=== PATIENT | female | born 1965 | race Caucasian/White ===

== ENCOUNTER 2025-04-09 00:50 | Emergency (ER) | payer MEDICAID, SELFPAY ==
[2025-04-09 00:50] VITALS: BMI 31.6
[2025-04-09 01:09] VITALS: BP 156/91; PULSE 77; RESP 22; TEMP 36.6; O2SAT 97
--- NOTE | 2025-04-09 01:32 | EKG_ITS ---
[facility] Test Date: 2025-04-09 Pat Name: KOFI ZAVALETA Department: Room: - Gender: Female Self Pay Collector: : 1965 Requested By: Kirk Caceres Order Number: [id number] Reading MD: Kirk Caceres Measurements Intervals [place] Rate: 83 P: 15 SC: 163 QRS: -56 QRSD: 106 T: 60 QT: 377 QTc: 444 Interpretive Statements SINUS RHYTHM LEFT ANTERIOR FASCICULAR BLOCK [QRS AXIS <= -45, QR IN I, RS IN II] VOLTAGE CRITERIA FOR LVH [MEETS CRITERIA IN ONE OF: R(aVL), S(V1), R(V5), R(V5/V6)+S(V1)] POSSIBLE ANTERIOR MYOCARDIAL INFARCTION , OF INDETERMINATE AGE [30 ms Q WAVE IN V3/V4, OR R < 0.2 mV IN V4] Compared to ECG 03/24/2023 18:37:25 No significant changes /store/S0/[id number]/ecg/[id number].pdf
--- NOTE | 2025-04-09 01:32 | XR_ITS ---
Examination: PA chest single view Technique whereby PA chest single view Date and time: April 09, 2025 0143 hours Comparison March 24, 2023 MEDICATIONS: Lower chest pain nausea vomiting today. FINDINGS: No significant cardiac enlargement Lungs are clear. The osseous structures are demineralized IMPRESSION: No active disease
--- NOTE | 2025-04-09 01:32 | PD.EDRME ---
Rapid Medical Screening Exam RME Arrival date/time: 04/09/25 00:50 59F with history of HTN, hypothyroidism, and seizures presents to ED with 1 day of LUQ/lower chest pain and some N/V. Patient recently had an EGD and colonoscopy that were unremarkable. A part of her pancreas was biopsied, but as far as patient knows, all pathology was benign. Patient states this doesn't feel like her gastritis. Chief Complaint: Abdominal Pain Time Seen by Provider: 04/09/25 01:31 Vital signs: Vital Signs Temperature 98 F 04/09/25 01:09 Pulse Rate 77 04/09/25 01:09 Respiratory Rate 22 H 04/09/25 01:09 Blood Pressure 156/91 H 04/09/25 01:09 Pulse Oximetry (%) 97 04/09/25 01:09 Oxygen Delivery Method Room Air 04/09/25 01:09
[2025-04-09] MEDS: Aspirin 325 MG TABLET PO (01:42)
--- NOTE | 2025-04-09 02:17 | PD.EDABDPN ---
ED Abdominal Pain RME/HPI General Chief Complaint: Abdominal Pain Stated complaint: LEFT UPPER ABDOMINAL PAIN Time seen by provider: 04/09/25 01:31 Arrival date/time: 04/09/25 00:50 RME / HPI RME / HPI narrative: 04/09/25 00:50 59F with history of HTN, hypothyroidism, and seizures presents to ED with 1 day of LUQ/lower chest pain and some N/V. Patient recently had an EGD and colonoscopy that were unremarkable. A part of her pancreas was biopsied, but as far as patient knows, all pathology was benign. Patient states this doesn't feel like her gastritis. --------- Dr. Howard?s Main ED Evaluation: 59yo female with a history of HTN, hypothyroidism, seizures presents to the ED for a chief complaint of epigastric pain x tonight. No radiation or migration. Patient describes her pain as sharp in nature. Patient reports associated nausea and lightheadedness. Patient denies any vomiting, diarrhea, shortness of breath, cough, UTI symptoms, hematuria, melena, hematochezia, rash or any other associated symptoms. Denies any recent travel. Denies any history of similar symptoms. Denies any tobacco, alcohol or illicit drug use. PSH includes cholecystectomy, partial hysterectomy, and hernia repair. Related Data Home Medications ?Medication ?Instructions ?Recorded ?Confirmed atenolol 25 mg tablet 25 mg PO QDAY 09/27/21 09/27/21 thyroid (pork) 60 mg tablet 60 mg PO QDAY 09/27/21 09/27/21 ([place] Thyroid) Previous Rx's ?Medication ?Instructions ?Recorded gabapentin 300 mg capsule 300 mg PO TID PRN severe pain 09/27/21 (scale score 7-10) #30 caps ciprofloxacin HCl 500 mg tablet 500 mg PO BID #10 tabs 03/24/23 Allergies Allergy/AdvReac Type Severity Reaction Status Date / Time hydrocodone Allergy Mild FEELS Verified 03/24/23 16:19 LIKE SPIDERS CRAWLING ON ME Review of Systems Review of Systems Systems Reviewed: All systems reviewed, normal except as documented Past Medical History Past Medical History CARDIAC: Positive Hypertension; Negative Congestive Heart Failure RESPIRATORY: Negative Chronic Obstructive Pulmonary Disease (COPD) GENITOURINARY: Negative Renal Disease ENDOCRINE: Positive Hypothyroidism; Negative Diabetes Mellitus Type 1 or Diabetes Mellitus Type 2 Social History SMOKING STATUS: Never smoker ED Exam Narrative Physical exam: GEN. APPEARANCE: The patient is alert awake oriented X-3 in no distress, lying down comfortably, does not look ill/toxic. Patient has good eye contact. Patient is cooperative. VITALS: All vitals were reviewed and the pulse ox is 97% on room air which is normal according to my interpretation. HEENT: Normocephalic, atraumatic. Pupils are equal and reactive. Oral mucosa is moist. Patent Nares NECK: Supple, nontender, no thyromegaly, no meningismus, no JVD CHEST: Symmetrical, atraumatic, and with equal expansion, mild tenderness to the left rib, no deformity and no crepitus CARDIOVASCULAR: Heart regular rhythm no murmur or gallop rub or extra beats. LUNGS: Clear to auscultation bilaterally with symmetrical chest rise. No laboring tachypnea or wheezing. No intercostal subcostal retraction. No rales and no rhonchi. ABDOMEN: Soft, flat, nontender to palpation, no guarding or rebound tenderness. There are no abnormal masses palpated. Active and normal bowel sounds. EXTREMITIES: Nontender. No edema. No cyanosis. Patient is able to move all 4 extremities well, with full ROM and good CSM. SKIN: Warm and dry, no jaundice or rashes noted. NEURO: Patient is MURRAY x 4, Cranial nerves II through XII grossly intact. There is no focal neurologic deficits noted. GCS is 15, PNS and COMPENSATION AND BENEFITS ADVISOR appear grossly intact. PSYCHIATRIC: Patient is in normal mood and affect. Course Quality Measures none Orders Category Date Time Status EKG (ED ONLY) *Do not use* NOW Care 04/09/25 01:32 Completed EKG (ED Only) Stat Exams 04/09/25 01:32 Draft XR chest 1V portable Stat Exams 04/09/25 01:32 Taken B-Type Natriuretic Peptide Stat Lab 04/09/25 02:12 Completed CBC Stat Lab 04/09/25 02:12 Completed Comprehensive Metabolic Panel Stat Lab 04/09/25 02:12 Completed Lipase Stat Lab 04/09/25 02:12 Completed Partial Thromboplastin Time Stat Lab 04/09/25 02:12 Completed Prothrombin Time with INR Stat Lab 04/09/25 02:12 Completed Troponin I Stat Lab 04/09/25 02:12 Completed Troponin I Stat Lab 04/09/25 04:48 Completed Aspirin Med 04/09/25 01:32 Discontinued 325 mg PO X1 ONE Vital Signs Vital signs: Vital Signs Temperature 98 F 04/09/25 01:09 Pulse Rate 77 04/09/25 01:09 Respiratory Rate 22 H 04/09/25 01:09 Blood Pressure 156/91 H 04/09/25 01:09 Pulse Oximetry (%) 97 04/09/25 01:09 Oxygen Delivery Method Room Air 04/09/25 01:09 Abdominal Pain MDM MDM Narrative MDM Narrative:: Scribe Attestation: 04/09/25 Tish Ngo am scribing for and in the presence of Dr. Howard. Patient data External records reviewed:: [facility] previous records (Per chart review, patient was seen here on 03/24/23 for gastroenteritis.) Clinical information provided by:: patient Social determinants that could affect healthcare access:: none Patient has the following chronic illnesses:: HTN, seizures, hypothyroidism How is presenting disease/condition affected by chronic disease/condition?: uneffected by Evaluation data The following diagnostics were reviewed and interpreted by me:: lab results, radiology exam(s) and EKG tracing(s) Lab and/or radiology exams considered but not ordered:: none Interpretation Summary: CBC normal, PT/INR/PTT normal, CMP normal, Troponin normal, BNP normal, Lipase normal. Repeat Troponin is normal. CXR shows no pleural effusions, no infiltrates, no consolidations, according to my interpretation. EKG done at 0135, NSR, rate of 83, normal intervals, nonspecific ST-T changes, no acute ischemia, according to my interpretation. On reevaluation patient hemodynamically stable not distressed will discharge home close return precautions follow-up with your primary care doctor. Patient would benefit for evaluation by client technical professional, would benefit from a stress test and cardiac ultrasound Medications / Prescriptions Medications or Prescriptions considered but not ordered:: none Medication administrations:: Medication Administration History Discontinued Medications Aspirin (Aspirin 325 Mg Tablet) 325 mg PO X1 ONE Stop: 04/09/25 01:33 Last Admin: 04/09/25 01:42 Dose: 325 mg Documented By: MIC see above Consultations Consultation(s) initiated? (list below): No Diagnosis Differential diagnosis abdominal pain: other (ACS, metabolic disturbance, dehydration, STEMI, NSTEMI) Most likely diagnosis given after review of the tests above:: see clinical impression below Admission Indicated Admission indicated?: not indicated Admission Request Was there a request for admission?: No Disposition Plan Disposition Plan: Discharge Discharge Attestation Discharge Attestation: The patient and all family members were given an opportunity to ask questions and understood the discharge instructions. Discharge instructions specifically effects, indications for sooner follow up or return to the emergency department, and the expected course of current diagnosis. Patient condition: Stable Discharge Plan Plan Patient Disposition: HOME (Self Care) Prescriptions/Referrals Prescriptions/Med Rec: No Action gabapentin 300 mg capsule 300 mg PO TID PRN (Reason: severe pain (scale score 7-10)) Qty: 30 0RF Rx Instructions: Start 1 capsule at bedtime, as needed for chest wall pain, may gradually increase to twice daily to 3 times daily as needed for pain atenolol 25 mg tablet 25 mg PO QDAY thyroid (pork) [[place] Thyroid] 60 mg tablet 60 mg PO QDAY ciprofloxacin HCl 500 mg tablet 500 mg PO BID Qty: 10 0RF Referrals: Sheron Akbar PA-C [Primary Care Provider] - In 1 week Problem List Clinical Impression: Chest discomfort Patient/Caregiver Discharge Instructions Discharge Activity: activity as tolerated Education Materials: ED Chest Pain, Noncardiac Additional Instructions: Your chest x-ray labs and EKG today were reassuring. Your cardiac enzyme was not elevated on 2 different assessments less likely that you are having acute cardiac event. It is important that you follow-up with your primary care doctor and request evaluation by client technical professional. You may benefit from a stress test and a cardiac echo. Print Language: Occitan Stand Alone Forms: Lucie Award Info., Patient Portal Info Letter
[2025-04-09 02:37] LABS: Basophils % (Auto) 0 % (0-2.5); Eosinophils # (Auto) 0.1 Thou/mm3 (0.0-0.5); Eosinophils % (Auto) 2 % (0-10); Hematocrit 38.4 % (36.0-46.0); Hemoglobin 13.2 g/dL (12.0-16.0); Immature Granulocytes % (Auto) 0 % (0-0); Immature Granulocytes Auto 0.02 Thou/mm3 (0.00-0.00); Lymphocytes # (Auto) 3.1 Thou/mm3 (1.0-4.8); Lymphocytes % (Auto) 41 % (10-50); Mean Corpuscular HGB Conc 34.4 g/dl (31.0-37.0); Mean Corpuscular Hemoglobin 29.9 pg (25.0-35.0); Mean Corpuscular Volume 87 fL (80-100); Monocytes # (Auto) 0.7 Thou/mm3 (0.0-0.8); Monocytes % (Auto) 9 % (0-12); Neutrophils # (Auto) 3.5 Thou/mm3 (1.8-7.7); Neutrophils % (Auto) 47 % (37-80); Nucleated Red Blood Cell % 0 /100 WBC (0); Platelet Count 233 Thou/mm3 (140-440); RDW Standard Deviation 42.2 fL (36.4-46.3); Red Blood Count 4.42 Miln/mm3 (4.00-5.20); White Blood Count 7.5 Thou/mm3 (3.6-11.0)
[2025-04-09 02:39] LABS: INR 0.9 (0.9-1.3); Partial Thromboplastin Time 24.8 Seconds (22.0-36.0); Prothrombin Time 10.4 Seconds (9.0-12.2)
[2025-04-09 02:43] LABS: B-Type Natriuretic Peptide < 20 pg/mL (0-100)
[2025-04-09 02:46] LABS: Alanine Aminotransferase 29 U/L (10-49); Albumin, Serum 4.5 gm/dL (3.4-4.8); Albumin/Globulin Ratio 2.1 (1.2-2.2); Alkaline Phosphatase 101 U/L (46-116); Anion Gap 11 (7-16); Aspartate Amino Transferase 26 U/L (0-34); BUN/Creatinine Ratio 14 Ratio (12-20); Bilirubin,Total 0.3 mg/dL (0.3-1.2); Blood Urea Nitrogen 17 mg/dL (9-23); Calcium 9.5 mg/dL (8.3-10.6); Calcium (Corrected) 9.5 mg/dL (8.5-10.1); Carbon Dioxide 24.7 mMol/L (20.0-31.0); Chloride 109 mMol/L (98-107); Creatinine (Component) 1.2 mg/dL (0.6-1.3); Globulin 2.1 gm/dL (2.3-3.5); Glucose 115 mg/dL (74-106); Lipase 43 U/L (12-53); Osmolality,Calculated 291 (275-295); Potassium 3.9 mMol/L (3.4-5.1); Sodium 145 mMol/L (136-145); Total Protein 6.6 gm/dL (5.7-8.2); Troponin I < 0.020 ng/mL (0.0-0.045); eGFR 52 See Note
[2025-04-09 03:50] VITALS: BP 131/80; PULSE 81; RESP 18; TEMP 36.6; O2SAT 97
[2025-04-09 05:51] LABS: Troponin I < 0.020 ng/mL (0.0-0.045)
[2025-04-09 07:06] VITALS: BP 124/80; PULSE 65; RESP 18; TEMP 36.6; O2SAT 98
== END 2025-04-09 07:06 | disposition home or self-care (01) ==
PROVIDERS: Physician Assistant; Emergency Provider Emergency Medicine; PCP Physician Assistant
DX: R07.89 Other chest pain (principal); R11.2 Nausea with vomiting, unspecified; I44.4 Left anterior fascicular block; I10 Essential (primary) hypertension
CPT/HCPCS: 36415; 71045; 80053; 83690; 83880; 84484; 85025; 85610; 85730; 93005; 99283; A9270

== ENCOUNTER → 2025-05-21 | Outpatient (CLI) | payer MEDICAID, SELFPAY ==
--- NOTE | 2025-05-21 09:00 | XR_ITS ---
Examination: Upper GI series with KUB Fluoroscopy 21 spot fluoroscopic films of the esophagus stomach and duodenum Date and time: May 11, 2025 0858 hours INDICATIONS: Acid reflux heartburn difficulty swallowing beginning one year ago TECHNIQUE AND FINDINGS: Machine Gunner preliminary abdomen film demonstrates nonobstructive bowel gas pattern Surgical clips upper right abdomen Primary peristaltic esophageal waves Numerous secondary and tertiary esophageal contractions Moderate intermittent gastroesophageal reflux Moderate sliding hiatal hernia. No stricture the gastroesophageal junction. No gastric mass or ulceration Mild mucosal thickening in the gastric antrum No duodenal ulcer Total sleep unremarkable IMPRESSION: Moderate intermittent gastroesophageal reflux No stricture at the gastroesophageal junction Findings most consistent with antral gastritis but clinical correlation and follow-up suggested
== END | disposition home or self-care (01) ==
LOC: CDIM 08:30
PROVIDERS: Referring Provider Internal Medicine Gastroenterology; Visit Provider Internal Medicine Gastroenterology
DX: K21.9 Gastro-esophageal reflux disease without esophagitis (principal)
CPT/HCPCS: 74240; A4649

== ENCOUNTER → 2025-05-27 | Outpatient (CLI) | payer MEDICAID, SELFPAY ==
--- NOTE | 2025-05-27 14:27 | XR_ITS ---
Examination: Knee, left , 3 views Technique: Knee AP, lateral, oblique 3 views Date and time of exam: May 27, 2025 1432 hours INDICATIONS: Left knee pain beginning 2 years ago FINDINGS: Moderate to advanced tricompartment osteoarthritis, most severe narrowing medial joint space No fracture or dislocation. Small knee effusion IMPRESSION: Moderate to advanced tricompartment osteoarthritis
--- NOTE | 2025-05-27 14:27 | XR_ITS ---
Examination: Bilateral hips, AP pelvis, 5 views Technique: AP, lateral views both hips, AP pelvis, 5 views Exam date and time: May 27, 2025 1432 hours INDICATIONS: Bilateral hip pain years, worse the last week. FINDINGS: Moderate osteopenia Mild to moderate narrowing hip joints No hip or pelvic fracture IMPRESSION: Mild to moderate narrowing hip joints
== END | disposition home or self-care (01) ==
LOC: CDIM 14:08
PROVIDERS: PCP Physician Assistant; Referring Provider Physician Assistant; Visit Provider Physician Assistant
DX: M25.852 Other specified joint disorders, left hip (principal); M25.851 Other specified joint disorders, right hip; M17.12 Unilateral primary osteoarthritis, left knee
CPT/HCPCS: 73523; 73562

== ENCOUNTER → 2025-08-04 | Outpatient (CLI) | payer MEDICAID, SELFPAY ==
--- NOTE | 2025-08-04 | XR_ITS ---
Examination: Foot, right, 3 views Technique: AP, oblique, lateral views foot, 3 views Date and time of exam: August 04, 2025, 11:11 a.m. INDICATIONS: Heel pain several months FINDINGS: Prominent hallux valgus bunion deformity Mild narrowing first metatarsophalangeal joint. 12 mm posterior bony calcaneal spur IMPRESSION: Prominent hallux valgus bunion deformity 12 mm posterior bony calcaneal spur
== END | disposition home or self-care (01) ==
PROVIDERS: PCP Physician Assistant; Referring Provider Physician Assistant; Visit Provider Physician Assistant
DX: M77.31 Calcaneal spur, right foot (principal)
CPT/HCPCS: 73630